=== PATIENT | female | born 2000 | race African-American/Black ===

== ENCOUNTER 2023-01-13 13:09 | Emergency (ER) | payer OTHER ==
[~2023-01-13] VITALS: Ht 162.6 cm; Wt 55.0 kg
[2023-01-13 13:20] VITALS: TEMP 99.3; O2SAT 97
[2023-01-13 13:45] VITALS: BP 141/84; PULSE 85; RESP 15
[2023-01-13] MEDS ORDERED: CYCLOBENZAPRINE 10MG TABLET PO ONE (13:45)
[2023-01-13] MEDS ORDERED: KETOROLAC 60MG/2ML VIAL IM ONE (13:45)
[2023-01-13] MEDS ORDERED: IBUP-2028 MT (15:05)
== END 2023-01-13 15:21 | disposition home or self-care (01) ==
LOC: ER 13:09
DX: M79.601 Pain in right arm (principal); Z88.0 Allergy status to penicillin; V99.XXXA Unspecified transport accident, initial encounter; Y93.89 Activity, other specified; Y92.89 Other specified places as the place of occurrence of the external cause; Y99.8 Other external cause status
CPT/HCPCS: 99283; 81025; 96372; J1885